=== PATIENT | female | born 1955 | race Caucasian/White ===

== ENCOUNTER 2018-02-18 15:34 | Emergency (ER) | payer OTHER ==
[~2018-02-18] VITALS: Ht 165.1 cm; Wt 59.0 kg
[~2018-02-18 15:34] MED LIST: 378 PO; AMITRIPTYLINE75 MG PO; DIA5 PO; METFORMIN1000 MG PO; SIMVASTATIN20 MG PO; TOP100 PO
[2018-02-18 15:38] VITALS: Ht 165.1 cm; Wt 59.0 kg
[2018-02-18 18:13] VITALS: BP 168/98
== END 2018-02-18 18:13 | disposition home or self-care (01) ==
LOC: ED 15:34
DX: S13.4XXA Sprain of ligaments of cervical spine, initial encounter (principal); S93.401A Sprain of unspecified ligament of right ankle, initial encounter; S63.501A Unspecified sprain of right wrist, initial encounter; S80.01XA Contusion of right knee, initial encounter; S00.03XA Contusion of scalp, initial encounter; S29.012A Strain of muscle and tendon of back wall of thorax, initial encounter; I10 Essential (primary) hypertension; E11.9 Type 2 diabetes mellitus without complications; G43.909 Migraine, unspecified, not intractable, without status migrainosus; Z90.49 Acquired absence of other specified parts of digestive tract; Z88.0 Allergy status to penicillin; W18.30XA Fall on same level, unspecified, initial encounter; Y93.89 Activity, other specified; Y92.89 Other specified places as the place of occurrence of the external cause; Y99.8 Other external cause status
CPT/HCPCS: 72072; 82962

== ENCOUNTER 2018-10-06 20:47 | Emergency (ER) | payer OTHER ==
[~2018-10-06] VITALS: Ht 165.1 cm; Wt 92.8 kg
[2018-10-06 21:10] VITALS: Ht 165.1 cm; Wt 92.8 kg
[2018-10-06 21:32] LABS: PLATELET COUNT 224 x10^3mcL (130-400)
[2018-10-06 21:33] LABS: BASOPHIL % 0 % (0-2); RED CELL DISTRIBUTION WIDTH 15.8 % (11.5-14.5)
[2018-10-06 21:41] LABS: CALCIUM 9.4 mg/dL (8.5-10.1); CARBON DIOXIDE 24.6 mmol/L (21-32); CREATININE SERUM 1.1 mg/dL (0.6-1.0); POTASSIUM SERUM 4.4 mmol/L (3.5-5.1)
[2018-10-06 21:48] LABS: ALBUMIN 3.5 g/dL (3.4-5.0); BILIRUBIN TOTAL 0.3 mg/dL (0.20-1.00); TOTAL PROTEIN, SERUM 7.2 g/dL (6.4-8.2)
[2018-10-06 23:18] LABS: UA SPECIFIC GRAVITY 1.025 (1.005-1.035); microscopic required? YES; urine erythrocyte NEGATIVE (NEGATIVE)
[2018-10-07 00:27] VITALS: BP 155/79
== END 2018-10-07 00:27 | disposition home or self-care (01) ==
LOC: ED 20:47
PROVIDERS: Emergency Medicine
DX: N39.0 Urinary tract infection, site not specified (principal); R19.7 Diarrhea, unspecified; I10 Essential (primary) hypertension; E11.9 Type 2 diabetes mellitus without complications; G43.909 Migraine, unspecified, not intractable, without status migrainosus; Z90.89 Acquired absence of other organs; Z90.49 Acquired absence of other specified parts of digestive tract; Z98.890 Other specified postprocedural states; Z88.0 Allergy status to penicillin
CPT/HCPCS: J2405; J3010; J7030